=== PATIENT | male | born 1950 ===

== ENCOUNTER 2022-05-30 09:15 | Outpatient (REF) | payer MEDICARE, SELFPAY ==
--- NOTE | 2022-05-30 10:26 | MHC.AU.HA3 ---
Hearing Instrument Follow-Up- Binaural Date of Visit: 05/30/22 Right Ear: Make, Model, Color, Serial Number: Cochlear Implant Dispensed By: [facility] Date of Fittin Follow-Up Summary: Gregorio was scheduled for an audiological evaluation. However, he has a cochlear implant from [facility] reportedly fit in 2018. Per his daughter, Kayley, [facility] no longer accepts his [facility] insurance. Advised [facility] does not work with cochlear implants (or accept [facility] for any other services besides hearing tests) and Gregorio will need to establish care with a new cochlear implant provider. Gregorio reportedly wore a hearing aid on the right ear prior to obtaining the CI. His left ear is reportedly . Per Kayley, ever since obtaining the CI, Gregorio has had significant difficulty hearing and understanding. They typically communicate via text, writing, or lip reading and do not notice any benefit from the CI. Gregorio reportedly wants to use a hearing aid again. He cannot change insurances as [facility] covers his [employer] services. Recommendations: Need to establish care with CI provider. Advised calling [facility] insurance to inquire about contracted CI providers in the area. Diagnosis Code(s): Primary Diagnosis: H91.93 Unspecified Hearing Loss, Bilateral Signature: Provider: Ricardo Wilkerson, [facility]
== END 2022-05-30 09:16 | disposition home or self-care (01) ==
LOC: HO.SH 09:15
PROVIDERS: Visit Provider Physician Assistant
DX: Z13.89 Encounter for screening for other disorder (principal)